=== PATIENT | male | born 1950 | race Two or more races ===

== ENCOUNTER 2016-10-11 16:21 | Emergency (ER) | payer MEDICARE, OTHER ==
[~2016-10-11] VITALS: Ht 167.6 cm; Wt 67.7 kg
[~2016-10-11 16:21] MED LIST: HYDR-3546 OR; MELO-85 PO; TRAZ50TA2 PO
[2016-10-11 17:23] LABS: Basophils # (auto) 0.1 uL; Basophils % (auto) 0.4 % (0.0-2.0); Eosinophils # (auto) 0 uL; Hematocrit 43.9 % (41.0-53.0); Hemoglobin 14.3 g/dL (13.5-17.5); Lymphocytes % (auto) 6.4 % (10.0-50.0); Mean Corpuscular Hemoglobin 28.9 pg (28.0-32.0); Mean Corpuscular Hgb Conc. 32.6 g/dL (32.0-36.0); Mean Corpuscular Volume 88.8 fL (80.0-100.0); Mean Platelet Volume 7.9 fL (7.4-10.4); Monocytes # (auto) 0.5 uL; Monocytes % (auto) 3.3 % (0.0-12.0); Neutrophils # (auto) 14.6 uL; Neutrophils % (auto) 89.9 % (37.0-80.0); Platelet Count (auto) 197 10^3/uL (140-450); Red Cell Distribution Width 14.8 % (11.6-16.0); White Blood Cell 16.2 10^3/uL (4.4-10.8)
[2016-10-11 17:38] LABS: Albumin 4.2 g/dL (3.4-5.0); Calcium 8.7 mg/dL (8.5-10.1); Potassium 3.5 mmol/L (3.5-5.1)
[2016-10-11 17:41] LABS: Bilirubin, Total 0.5 mg/dL (0.2-1.0); Total Protein 7.5 g/dL (6.4-8.2)
[2016-10-11] MEDS ORDERED: DONNATAL 5ml ORAL Elix (BELLADONNA ALK-PHENOBARB) PO ONE (20:00)
[2016-10-11] MEDS ORDERED: PANTOPRAZOLE SODIUM 40 MG/10 ML VIAL IV ONE (20:00)
[2016-10-11] MEDS ORDERED: LIDOCAINE VISCOUS 2% 15ML UD PO ONE (20:00)
[2016-10-11] MEDS ORDERED: ONDANSETRON HCL 4 MG/2 ML VIAL IV ONE ×2 (20:00→21:30)
[2016-10-11] MEDS ORDERED: ALUM & MAG HYDROX-SIMETH LIQ(MAALOX) 30 ML PO ONE (20:00)
[2016-10-11] MEDS ORDERED: HYDROmorphone HCL 2 MG/ML VL IV ONE ×2 (20:00→21:30)
[2016-10-11] MEDS ORDERED: SODIUM CHLORIDE 0.9% 1,000 ML IV ONE (20:00)
[2016-10-11 20:14] LABS: Amylase 81 U/L (25-115)
[2016-10-11 20:56] LABS: Urine Bilirubin Negative (Negative); Urine Blood Negative /uL (Negative); Urine Color Yellow (Yellow); Urine Nitrite Negative (Negative); Urine RBC 2 /hpf (0 - 3); Urine Sperm PRESENT /hpf (None Seen); Urine Urobilinogen Normal (Negative); Urine pH 8.5 (5.0-8.0)
[2016-10-11 20:58] LABS: Urine Glucose 4+ mg/dL (Normal); Urine Ketone 1+ (Negative)
[2016-10-11 21:48] VITALS: BP 129/64
== END 2016-10-11 22:00 | disposition home or self-care (01) ==
LOC: ER 16:28
DX: K29.00 Acute gastritis without bleeding (principal); K21.0 Gastro-esophageal reflux disease with esophagitis; E78.5 Hyperlipidemia, unspecified; I10 Essential (primary) hypertension; G89.29 Other chronic pain; M54.9 Dorsalgia, unspecified; F17.210 Nicotine dependence, cigarettes, uncomplicated; F12.10 Cannabis abuse, uncomplicated; K86.1 Other chronic pancreatitis; Z90.49 Acquired absence of other specified parts of digestive tract; Z90.89 Acquired absence of other organs; Z88.0 Allergy status to penicillin
CPT/HCPCS: 36415; 71010; 74150; 80053; 80320; 81001; 82150; 83690; 84484; 85025; 85049; 94761; 96374; 96375; 96376; 99285; C9113; G0434; J1170; J2405; 93005

== ENCOUNTER 2024-02-17 13:02 | Inpatient (IN) | payer MEDICAID, MEDICARE, OTHER ==
[~2024-02-17] VITALS: Ht 167.6 cm; Wt 60.8 kg
[~2024-02-17 13:02] MED LIST changes: -HYDR-3546 OR; +HYDR-3547 OR; -MELO-85 PO; +MELO7.5T7 PO; +TRAZ-227 PO; -TRAZ50TA2 PO
[2024-02-17 13:44] LABS: Basophils # (auto) 0.1 10 ^3/uL (0-0.2); Basophils % (auto) 0.7 % (0.0-2.0); Eosinophils # (auto) 0 10 ^3/uL (0-0.8); Eosinophils % (auto) 0.2 % (0.0-7.0); Hemoglobin 13.1 g/dL (13.5-17.5); Lymphocytes % (auto) 11.7 % (10.0-50.0); Mean Corpuscular Hemoglobin 30.8 pg (28.0-32.0); Mean Corpuscular Hgb Conc. 34.5 g/dL (32.0-36.0); Mean Corpuscular Volume 89.1 fL (80.0-100.0); Monocytes # (auto) 0.5 10 ^3/uL (0-1.3); Monocytes % (auto) 5.8 % (0.0-12.0); Neutrophils # (auto) 7.1 10 ^3/uL (1.6-8.6); Neutrophils % (auto) 81.6 % (37.0-80.0); Red Blood Cells 4.26 10^6/uL (4.5-5.90); Red Cell Distribution Width 14.4 % (11.8-14.3); White Blood Cell 8.7 10^3/uL (4.4-10.8)
[2024-02-17 14:05] LABS: Albumin 4.1 g/dL (3.2-4.8); Alkaline Phosphatase 81 U/L (46-116); Anion Gap 9 (5-15); Aspartate Aminotransferase 18 U/L (13-40); BUN/Creatinine Ratio 11.5 (10.0-20.0); Bilirubin, Total 0.7 mg/dL (0.2-1.0); Blood Urea Nitrogen 10 mg/dL (9-23); Calcium 9.1 mg/dL (8.5-10.1); Carbon Dioxide 28 mmol/L (20-30); Chloride 92 mmol/L (98-107); Glucose 112 mg/dL (74-106); Sodium 129 mmol/L (136-145); Total Protein 6.7 g/dL (5.7-8.2)
[2024-02-17 14:07] LABS: Alanine Aminotransferase < 9 U/L (7-40); Potassium 2.5 mmol/L (3.5-5.1)
[2024-02-17 14:43] VITALS: PULSE 59; RESP 16; O2SAT 100
[2024-02-17] MEDS: ENOXAPARIN SOD 60 MG/0.6 ML SYRINGE SC ONE (14:51)
[2024-02-17] MEDS: POTASSIUM CHL 20MEQ/100ML 100 ML IV ONE (14:55)
[2024-02-17] MEDS: IOHEXOL 350 MG/ML 100ML IJ ONE (15:14)
[2024-02-17] MEDS ORDERED: ACETAMINOPHEN 325 MG TAB PO PRN (15:15)
[2024-02-17] MEDS ORDERED: DOCUSATE SOD 100 MG CAP PO PRN (15:15)
[2024-02-17] MEDS: ONDANSETRON HCL 4 MG/2 ML VIAL IV PRN (15:35)
[2024-02-17] MEDS: HYDROcodone-ACET 5/325MG TAB PO PRN (15:35)
[2024-02-17] MEDS: SODIUM CHLORIDE 0.9% 1,000 ML IV SCH (15:36)
[2024-02-17] MEDS ORDERED: NITROGLYCERIN 0.4 MG SL TAB SL PRN (16:00)
[2024-02-17] MEDS ORDERED: hydrALAZINE HCL 20 MG/ML VL IV PRN (16:00)
[2024-02-17 16:04] LABS: Urine Bacteria FEW /hpf (None Seen); Urine Blood Negative /uL (Negative); Urine Clarity Clear (Clear); Urine Color Light-Yellow (Yellow); Urine Protein, UAD 1+ (Negative); Urine Urobilinogen 3 mg/dL (Negative); Urine WBC <1 /hpf (0 - 3); Urine pH 8.5 (5.0-9.0)
[2024-02-17 16:09] LABS: Urine Specific Gravity 1.045 (1.001-1.035)
[2024-02-17] MEDS: MORPHINE SULFATE INJ 2 MG/ml SYRG IV PRN (16:38)
[2024-02-17 17:28] LABS: INR 1.12 (0.9-1.15); Partial Thromboplastin Time 34.5 SEC (24.5-34.5); Prothrombin Time 11.8 sec (9.3-11.8)
[2024-02-17 18:42] LABS: Chloride 94 mmol/L (98-107); Potassium 2.9 mmol/L (3.5-5.1); Sodium 129 mmol/L (136-145)
[2024-02-17 18:43] LABS: Anion Gap 6 (5-15); Carbon Dioxide 29 mmol/L (20-30)
[2024-02-17 18:44] LABS: Calcium 8.6 mg/dL (8.5-10.1)
[2024-02-17 18:47] LABS: Amphetamine Screen, Urine Neg (NEGATIVE); Barbiturate Scree,Urine Neg (NEGATIVE); Benzodiazephine Screen, Urine Neg (NEGATIVE); Cannabinoid Screen, Urine Pos (NEGATIVE); Cocaine Screen, Urine Neg (NEGATIVE); Opiate Scree,Urine Neg (NEGATIVE); Phencyclidine Screen, Urine Neg (NEGATIVE)
[2024-02-17 18:48] LABS: BUN/Creatinine Ratio 11.4 (10.0-20.0); Blood Urea Nitrogen 9 mg/dL (9-23); Glucose 96 mg/dL (74-106)
[2024-02-17 19:35] VITALS: PULSE 59; RESP 12; O2SAT 100
[2024-02-17] MEDS ORDERED: ENOXAPARIN SOD 60 MG/0.6 ML SYRINGE SC SCH (22:00)
[2024-02-17] MEDS: ATORVASTATIN 20 MG TAB PO SCH (22:01)
[2024-02-18] VITALS (12 sets, daily range): BP systolic 109–134; BP diastolic 49–68; PULSE 47–89; RESP 12–20; TEMP 97.6–98.4; O2SAT 95–100
[2024-02-18] MEDS: HEPARIN DRIP/D5W 100UNITS/ML 250 ML IV SCH (02:38)
[2024-02-18 06:56] LABS: Basophils # (auto) 0 10 ^3/uL (0-0.2); Basophils % (auto) 0.7 % (0.0-2.0); Eosinophils # (auto) 0.1 10 ^3/uL (0-0.8); Eosinophils % (auto) 2.2 % (0.0-7.0); Hematocrit 33.3 % (41.0-53.0); Hemoglobin 11.2 g/dL (13.5-17.5); Lymphocytes # (auto) 1.5 10 ^3/uL (0.4-5.4); Lymphocytes % (auto) 23.1 % (10.0-50.0); Mean Corpuscular Hemoglobin 30.4 pg (28.0-32.0); Mean Corpuscular Hgb Conc. 33.7 g/dL (32.0-36.0); Mean Corpuscular Volume 90.1 fL (80.0-100.0); Monocytes # (auto) 0.7 10 ^3/uL (0-1.3); Monocytes % (auto) 10.3 % (0.0-12.0); Neutrophils # (auto) 4.1 10 ^3/uL (1.6-8.6); Neutrophils % (auto) 63.7 % (37.0-80.0); Nucleated Red Blood Cells % 0.1 %; Red Cell Distribution Width 14.3 % (11.8-14.3); White Blood Cell 6.5 10^3/uL (4.4-10.8)
[2024-02-18 07:04] LABS: Albumin 3.3 g/dL (3.2-4.8); Alkaline Phosphatase 66 U/L (46-116); Anion Gap 4 (5-15); Aspartate Aminotransferase 19 U/L (13-40); BUN/Creatinine Ratio 11.8 (10.0-20.0); Blood Urea Nitrogen 9 mg/dL (9-23); Calcium 8.2 mg/dL (8.5-10.1); Carbon Dioxide 32 mmol/L (20-30); Chloride 95 mmol/L (98-107); Cholesterol 110 mg/dL (< 200); Glucose 86 mg/dL (74-106); LDL Cholesterol 36 mg/dL (< 100); Potassium 2.9 mmol/L (3.5-5.1); Sodium 131 mmol/L (136-145); Triglycerides 50 mg/dL (< 150)
[2024-02-18 07:05] LABS: Bilirubin, Total 0.6 mg/dL (0.2-1.0); HDL Cholesterol 54 mg/dL (40-59); Total Protein 5.2 g/dL (5.7-8.2)
[2024-02-18 07:08] LABS: Alanine Aminotransferase < 9 U/L (7-40)
[2024-02-18] MEDS: PANTOPRAZOLE 40 MG/10 ML VIAL INJ IV SCH ×2 (09:05→21:07)
[2024-02-18] MEDS: POTASSIUM CHL 20 Meq TABLET PO SCH (09:05)
[2024-02-18] MEDS: IOHEXOL 350 MG/ML 100ML IJ ONE (09:12)
[2024-02-18] MEDS: LIDOCAINE 2%HCL (LOCAL ANESTH.) INJ 20ML MDV ONE (09:12)
[2024-02-18] MEDS: HEPARIN IN NS 1000Units/500mL 1,500 ML ONE (09:13)
[2024-02-18] MEDS: GELATIN 1 SPONGE SIZE 50 TOP ONE ×2 (09:13→10:23)
[2024-02-18] MEDS: IODIXANOL 320MG/ML 100ML BTL IV ONE ×2 (10:31→10:33)
[2024-02-18] MEDS: MIDAZOLAM HCL 2MG/2ML 2ml VIAL (1mg/ml) ONE (11:19)
[2024-02-18] MEDS: SODIUM CHL 0.9% 0 ML ONE (11:19)
[2024-02-18] MEDS: VERAPAMIL 2.5MG/ML INJ 2ML VIAL IV ONE (11:19)
[2024-02-18] MEDS: fentaNYL CITRATE 100 MCG/2 ML VL ONE (11:19)
[2024-02-18] MEDS: ANGIOMAX 250 MG VIAL IV ONE (11:19)
[2024-02-18] MEDS: D5W/SOD CHL 0.9%/KCL 40MEQ 1,000 ML IV SCH (13:42)
[2024-02-18 15:37] LABS: INR 1.03 (0.9-1.15); Partial Thromboplastin Time 29.4 SEC (24.5-34.5); Prothrombin Time 10.9 sec (9.3-11.8)
[2024-02-18] MEDS: SUCRALFATE 1 GM/10 ML ORAL SUSP GT SCH (17:00)
[2024-02-19 01:00] VITALS: BP 115/60; PULSE 54; RESP 20; TEMP 97.8; O2SAT 99
[2024-02-19 04:57] VITALS: BP 147/60; PULSE 51; RESP 20; TEMP 98.7; O2SAT 100
[2024-02-19] MEDS ORDERED: PANTOPRAZOLE 40 MG TAB PO SCH (06:00)
[2024-02-19 08:00] VITALS: PULSE 63
[2024-02-19 09:00] VITALS: BP 129/65; PULSE 50; RESP 16; TEMP 98; O2SAT 97
[2024-02-19] MEDS ORDERED: PANT40TA2 PO (10:20)
[2024-02-19] MEDS ORDERED: SUCR1TAB31 OR (10:20)
[2024-02-19] MEDS: SUCRALFATE 1 GM TAB PO SCH (10:40)
[2024-02-19 13:00] VITALS: BP 122/64; PULSE 52; RESP 16; TEMP 98; O2SAT 100
== END 2024-02-19 14:42 | disposition home or self-care (01) | DRG 281 ==
LOC: EDBD 13:02 → ER 13:02 → TELE 16:00 → TELE-WESTW 23:54
PROVIDERS: ADMIT Nurse Practitioner Family; ATTEND Nurse Practitioner Acute Care
PROC: 4A023N7 Measurement of Cardiac Sampling and Pressure, Left Heart, Percutaneous Approach (ICD-10-PCS; principal; 2024-02-18)
PROC: B211YZZ Fluoroscopy of Multiple Coronary Arteries using Other Contrast (ICD-10-PCS; 2024-02-18)
DX: I21.29 ST elevation (STEMI) myocardial infarction involving other sites (principal); E87.1 Hypo-osmolality and hyponatremia; E87.6 Hypokalemia; K21.00 Gastro-esophageal reflux disease with esophagitis, without bleeding; E78.5 Hyperlipidemia, unspecified; E66.9 Obesity, unspecified; I10 Essential (primary) hypertension; F17.210 Nicotine dependence, cigarettes, uncomplicated; K22.70 Barrett's esophagus without dysplasia; F41.9 Anxiety disorder, unspecified; F32.A Depression, unspecified; F43.10 Post-traumatic stress disorder, unspecified; F12.90 Cannabis use, unspecified, uncomplicated; Z88.0 Allergy status to penicillin; Z90.49 Acquired absence of other specified parts of digestive tract; Z68.21 Body mass index [BMI] 21.0-21.9, adult; Z82.49 Family history of ischemic heart disease and other diseases of the circulatory system
CPT/HCPCS: 36415; 71045; 71275; 80048; 80053; 80061; 80307; 81001; 82378; 83036; 83615; 83880; 84443; 84484; 85025; 85379; 85610; 85730; 87081; 93005; 93306; 93458; 96361; 96365; 96375; 99152; C9113; G0378; J2250; J2405; J3480; Q9967